=== PATIENT | female | born 1970 | race Caucasian/White ===

== ENCOUNTER 2022-02-21 19:26 | Emergency (ER) | payer MEDICARE, MEDICAID, SELFPAY ==
--- NOTE | ~2022-02-21 | XR_ITS ---
EXAM: XR finger 3rd RT min 2V DATE: 02/21/2022 19:42 HISTORY: smashed finger in garage door tonight . COMPARISON: None available. FINDINGS: Decreased mineralization. Possible transverse nondisplaced fracture of the distal aspect o f the right third distal tuft. No lytic or blastic lesion. Mild scattered degenerative changes. No er osion or periosteal change. Soft tissues within normal limits. IMPRESSION: Possible subtle and nondisplaced transverse fracture of the distal aspect of the right th ird distal tuft, correlate with point tenderness. Reviewed, dictated and finalized at location K. ED [facility]PERATOR IMPRESSION: Possible subtle and nondisplaced transverse fracture of the distal aspect of the right third distal tuft, correlate with point tenderness.
--- NOTE | 2022-02-21 19:29 | ED.UPPEXIN ---
HPI - Extremity Injury (Upper) General Chief Complaint: Extremity Injury, Upper Stated Complaint: Right middle finger smashed Time Seen by Provider: 02/21/22 19:29 Source: patient and RN notes reviewed History of Present Illness HPI narrative: patient is a 51-year-old female who presents to urgent care with complaints of right middle finger injury after slamming it in the garage door earlier this afternoon. Patient states that she has taken naproxen and use ice. No other acute complaints or injuries. No acute distress noted. Patient aware of plan of care. Some parts of this dictation were generated by voice recognition software and may contain typographical and/or grammatical inaccuracies. Related Data Home Medications Medication Instructions Recorded Confirmed dicyclomine 20 mg tablet 20 mg PO DIRECTED 02/21/22 02/21/22 hydrocodone 10 mg-acetaminophen 1 tablet PO DIRECTED 02/21/22 02/21/22 325 mg tablet montelukast 10 mg tablet 10 mg PO DIRECTED 02/21/22 02/21/22 tizanidine 4 mg tablet 4 mg PO DIRECTED 02/21/22 02/21/22 trazodone 100 mg tablet 100 mg PO DIRECTED 02/21/22 02/21/22 Allergies Allergy/AdvReac Type Severity Reaction Status Date / Time adhesive tape Allergy Severe BLISTERS Verified 06/23/13 15:58 thimerosal Allergy Intermediate hives Verified 06/16/17 16:48 cefuroxime Allergy Mild Verified 04/13/11 12:50 adhesive Allergy Unknown Verified 12/02/09 11:02 aspirin Allergy Unknown Verified 06/20/13 09:21 caffeine Allergy Unknown Verified 05/09/12 15:30 latex Allergy Unknown Verified 09/15/09 14:08 ALL EYE DROPS Allergy Severe CRUSTY EYES Uncoded 01/08/13 15:05 Review of Systems Review of Systems: CONSTITUTIONAL: Denies fever, chills, or sweats. EYES: Denies visual changes, redness, or discharge. ENT: Denies rhinorrhea, congestion, sore throat, or otalgia. CARDIOVASCULAR: Denies chest pain, palpitations, or edema. RESPIRATORY: Denies cough or dyspnea. GASTROINTESTINAL: Denies abdominal pain, nausea, vomiting, or diarrhea. GENITOURINARY: Denies dysuria or hematuria. SKIN: Denies rash or itching. MUSCULOSKELETAL: Reports of right middle finger injury NEUROLOGIC: Denies headache, numbness, or weakness. All other systems reviewed are negative, except as documented in HPI. [facility] Family History Family History (Updated 11/27/13 @ 07:13 by DOCTOR UNKNOWN) Sibling Family history of schizophrenia Depression Father Hypertension Cerebrovascular accident Acute myocardial infarction Mother Cerebrovascular accident Family history of chronic obstructive pulmonary disease Family history of congestive heart failure Grandparent Family history of malignant neoplasm Diabetes mellitus Social History Social History Smoking end date: 04/02/11 Alcohol intake: never Comments At the time of my signature, I reviewed and agree with the nursing past medical, surgical, social, and family history. There is no relevant family history pertinent to the patient complaint. Exam Narrative: GENERAL: This is a well-nourished, well-developed patient, in no apparent distress. HEAD: normocephalic, atraumatic. EYES: PERRL. Sclera clear/white. Vision is grossly intact. EARS: External ears normal NOSE: External nose normal with no obvious nasal discharge, nares without redness, no rhinorrhea. THROAT: Mucous membranes moist NECK: Neck supple SKIN: Subungual hematoma to the right middle digit without active bleeding, 0.5 cm superficial abrasion noted to the tuft of the right middle finger NEURO: awake, alert, and oriented to person, place and time. There were no obvious focal neurologic abnormalities. EXTREMITIES: Moderate ecchymosis noted to the palmar test of the right middle finger with mild edema and moderate tenderness. Positive strong right radial pulse with capillary refill less than 2 seconds. Range of motion right upper extremity within normal limits. Course Course Level o
[2022-02-21 19:40] VITALS: BP 140/53; PULSE 80; RESP 20; TEMP 36.8; O2SAT 100
== END 2022-02-21 20:04 | disposition home or self-care (01) ==
PROVIDERS: Emergency Provider Nurse Practitioner Family; PCP Internal Medicine Infectious Disease
DX: S62.632A Displaced fracture of distal phalanx of right middle finger, initial encounter for closed fracture (principal); Z79.891 Long term (current) use of opiate analgesic; W23.0XXA Caught, crushed, jammed, or pinched between moving objects, initial encounter
CPT/HCPCS: 29130; 73140; 99214; G0463